=== PATIENT | female | born 1960 | race African-American/Black ===

== ENCOUNTER 2017-12-29 23:40 | Emergency (ER) | END 2017-12-30 05:30 | disposition home or self-care (01) ==

== ENCOUNTER 2019-02-02 12:36 | Emergency (ER) | payer SELFPAY ==
[~2019-02-02] VITALS: Wt 75.0 kg
[~2019-02-02 12:36] MED LIST: HYDR-4011 PO; METH750T93 PO; NAPR-688 PO
[2019-02-02 12:38] VITALS: BP 124/75; PULSE 98; RESP 18
== END 2019-02-02 15:00 | disposition left against medical advice (07) ==
LOC: E/R 12:36
DX: Z53.21 Procedure and treatment not carried out due to patient leaving prior to being seen by health care provider (principal)